=== PATIENT | female | born 1970 | race African-American/Black ===

== ENCOUNTER 2018-05-08 10:54 | Emergency (ER) | payer OTHER ==
[~2018-05-08] VITALS: Ht 157.5 cm; Wt 97.7 kg
[2018-05-08 10:55] VITALS: BP 108/69
== END 2018-05-08 13:53 | disposition home or self-care (01) ==
LOC: EDUNIT# 10:54 → EMS 10:55
DX: L50.9 Urticaria, unspecified (principal); F17.210 Nicotine dependence, cigarettes, uncomplicated; F19.90 Other psychoactive substance use, unspecified, uncomplicated

== ENCOUNTER 2019-05-16 12:29 | Emergency (ER) | payer OTHER ==
[~2019-05-16] VITALS: Ht 157.5 cm; Wt 104.5 kg
[2019-05-16] MEDS ORDERED: DiphenhydrAMINE HCL 25 MG CAPSULE PO ONE (14:30)
[2019-05-16 15:15] VITALS: BP 141/91
== END 2019-05-16 15:52 | disposition home or self-care (01) ==
LOC: EMS 12:30
DX: S30.860A Insect bite (nonvenomous) of lower back and pelvis, initial encounter (principal); S80.862A Insect bite (nonvenomous), left lower leg, initial encounter; S80.861A Insect bite (nonvenomous), right lower leg, initial encounter; L25.9 Unspecified contact dermatitis, unspecified cause; F17.210 Nicotine dependence, cigarettes, uncomplicated; W57.XXXA Bitten or stung by nonvenomous insect and other nonvenomous arthropods, initial encounter; Y93.89 Activity, other specified; Y92.89 Other specified places as the place of occurrence of the external cause; Y99.8 Other external cause status